=== PATIENT | male | born 1945 | race African-American/Black ===

== ENCOUNTER 2017-03-25 21:13 | Emergency (ER) | payer OTHER ==
[~2017-03-25] VITALS: Ht 175.3 cm; Wt 89.4 kg
[2017-03-25] MEDS ORDERED: COZAAR 50 MG TA50 M2 PO (22:20)
[2017-03-25] MEDS ORDERED: TRAMADOL 50 MG50 MG PO (22:33)
[2017-03-25 23:30] VITALS: BP 160/100
== END 2017-03-25 23:30 | disposition home or self-care (01) ==
LOC: ER 21:13
DX: S82.432A Displaced oblique fracture of shaft of left fibula, initial encounter for closed fracture (principal); I10 Essential (primary) hypertension; E11.9 Type 2 diabetes mellitus without complications; W01.0XXA Fall on same level from slipping, tripping and stumbling without subsequent striking against object, initial encounter; Y93.89 Activity, other specified; Y92.89 Other specified places as the place of occurrence of the external cause; Y99.8 Other external cause status

== ENCOUNTER 2018-06-01 09:46 | Emergency (ER) | payer OTHER ==
[~2018-06-01] VITALS: Ht 175.3 cm; Wt 93.0 kg
[~2018-06-01 09:46] MED LIST: COZAAR 50 MG TA50 M2 PO; TRAMADOL 50 MG50 MG PO
[2018-06-01 10:13] LABS: ABSOLUTE NEUTROPHILS 2.4 thou/uL (1.4-8.2); BASOPHILS 0.8 % (0.0-2.0); EOSINOPHILS 0.7 % (0.0-3.0); HEMATOCRIT 44.3 % (42.0-52.0); HEMOGLOBIN 15.1 gm/dL (14.0-18.0); LYMPHOCYTES 38.3 % (24.0-44.0); MCV 88.3 fL (80.0-100.0); MONOCYTES 6.7 % (1.0-8.0); PLATELET COUNT 178 thou/uL (150-400); POLYS 53.5 % (36.0-66.0); RBC 5.02 mil/uL (4.50-6.00); RDW 13.2 % (10.5-14.5); WBC 4.5 thou/uL (4.0-11.0)
[2018-06-01] MEDS ORDERED: METFORMIN HCL500 MG PO (10:20)
[2018-06-01] MEDS ORDERED: NIFEDIPINE10 MG PO (10:20)
[2018-06-01 10:22] LABS: CREATININE 0.9 mg/dL (0.7-1.3); POTASSIUM 3.4 mmol/L (3.5-5.1)
[2018-06-01 12:04] VITALS: BP 148/83
== END 2018-06-01 12:05 | disposition home or self-care (01) ==
LOC: ER 09:46
PROVIDERS: Emergency Medicine
DX: K64.4 Residual hemorrhoidal skin tags (principal); I10 Essential (primary) hypertension; E11.9 Type 2 diabetes mellitus without complications